=== PATIENT | female | born 1975 | race Caucasian/White ===

== ENCOUNTER 2021-03-24 21:10 | Emergency (ER) | payer OTHER ==
[~2021-03-24 21:10] MED LIST: AMITRIPTYLINE150 MG PO; CYANOCOBAL1000 MCG/1 INJ; CYCLOBENZAPRINE10 MG PO; FERROUS SULFAT325 M2 PO; LAMICTAL TAB 2525 MG PO; NEURONTIN800 MG PO; PRINIVIL10 MG PO; VITAMIN D21250 MCG PO; VIVITROL380 MG IM; XANAX1 MG PO
[2021-03-24 23:40] LABS: HEMOGLOBIN 12.9 gm/dl (12.3-15.3); RED BLOOD COUNT 4.09 M/UL (4.00-5.10); WHITE BLOOD COUNT 16.6 K/UL (4.5-11.0)
[2021-03-24 23:57] LABS: BUN/CREATININE RATIO 12 (0-10)
[2021-03-25] MEDS ORDERED: LAMICTAL100 MG PO (01:04)
== END 2021-03-25 01:30 | disposition home or self-care (01) ==
LOC: ER1 21:10
PROVIDERS: Emergency Medicine; Physician Assistant Medical
DX: G40.909 Epilepsy, unspecified, not intractable, without status epilepticus (principal); S80.01XA Contusion of right knee, initial encounter; S90.01XA Contusion of right ankle, initial encounter; S50.01XA Contusion of right elbow, initial encounter; S00.81XA Abrasion of other part of head, initial encounter; W20.8XXA Other cause of strike by thrown, projected or falling object, initial encounter; F17.210 Nicotine dependence, cigarettes, uncomplicated
CPT/HCPCS: 70450; 71045; 72125; 73080; 73564; 73610; 80053; 80307; 81001; 85025; 90471; 99284